=== PATIENT | female | born 1980 | race Caucasian/White ===

== ENCOUNTER 2017-01-31 14:00 | Emergency (ER) | payer OTHER ==
[2017-01-31 14:15] VITALS: BP 113/74; PULSE 91; TEMP 98.5; BMI 23.6
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
[2017-01-31 14:32] LABS: BASOPHIL 0.3 % (0-2.0); EOSINOPHIL 0.2 % (0-4.5); MCH 32.4 pg (25.7-33.7); MCHC 35.3 g/dl (32.0-36.0); MEAN CELL VOLUME 91.7 fl (80-96); MEAN PLT VOLUME 7.9 fl (7.5-11.1); NEUTROPHILS 74.2 % (42.8-82.8); PLATELET COUNT 210 K/MM3 (134-434); RDW 12.1 % (11.6-15.6); WHITE BLOOD COUNT 9.9 K/mm3 (4.0-10.8)
[2017-01-31 15:44] LABS: ALBUMIN 2.8 g/dl (3.5-5.0); ALK PHOS 120 U/L (32-92); ANION GAP 7 (8-16); BILIRUBIN,TOTAL 0.4 mg/dl (0.2-1.0); CALCIUM 8.5 mg/dl (8.4-10.2); CO2 22 mmol/L (22-28); CREATININE 0.7 mg/dl (0.6-1.3); GLUCOSE,RANDOM 94 mg/dl (74-106); SGOT/AST 25 U/L (10-42); SGPT/ALT 17 U/L (10-40); TOT PROT 6.3 g/dl (6.4-8.3)
[2017-01-31 16:12] LABS: HIV 1 & 2 AB NEGATIVE; HIV 1 AGp24 NEGATIVE
[2017-02-02 08:10] LABS: HEP B SURFACE AB Reactive (.)
== END 2017-01-31 14:50 | disposition home or self-care (01) ==
LOC: FER 14:00
DX: Z77.21 Contact with and (suspected) exposure to potentially hazardous body fluids (principal); W46.0XXA Contact with hypodermic needle, initial encounter; X58.XXXA Exposure to other specified factors, initial encounter; Y93.89 Activity, other specified; Y92.234 Operating room of hospital as the place of occurrence of the external cause; Y99.0 Civilian activity done for income or pay; O26.899 Other specified pregnancy related conditions, unspecified trimester
CPT/HCPCS: 36415; 80053; 85025; 86704; 86706; 86803; 87340; 87389; 99283-25

== ENCOUNTER 2019-07-29 08:32 | Emergency (ER) | payer OTHER ==
[2019-07-29 08:56] VITALS: BP 129/87; PULSE 66; TEMP 97.8; BMI 19.2
[2019-07-29] MEDS ORDERED: IBUPROFEN 400 MG TABLET (FP) PO ONE ×2 (09:15→09:17)
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
== END 2019-07-29 09:39 | disposition home or self-care (01) ==
LOC: JER 08:32
DX: S16.1XXA Strain of muscle, fascia and tendon at neck level, initial encounter (principal); V43.52XA Car driver injured in collision with other type car in traffic accident, initial encounter; Y92.414 Local residential or business street as the place of occurrence of the external cause; Y93.89 Activity, other specified; Y99.8 Other external cause status
CPT/HCPCS: 99282-25